=== PATIENT | male | born 1950 | race Caucasian/White ===

== ENCOUNTER → 2018-08-20 | Outpatient (CLI) | payer BC ==
--- NOTE | 2018-08-20 10:35 | REP ---
RIGHT KNEE, FIVE VIEWS: HISTORY: Pain. There is no acute fracture or dislocation. There is medial subluxation of the femur with respect to the tibia. There is severe narrowing of the knee joint space. There is minimal narrowing of the patellofemoral joint space. Osteophytes are present on the tibia, femur and patella. IMPRESSION: Degenerative change as described above. Electronically Signed by Garret Denson MD 08/20/2018 10:44 A
== END ==
LOC: M WUC 09:34
PROVIDERS: ATTEND Physician Assistant
DX: S83.111A Anterior subluxation of proximal end of tibia, right knee, initial encounter (principal); M25.861 Other specified joint disorders, right knee; M25.761 Osteophyte, right knee; Y93.9 Activity, unspecified; Y92.9 Unspecified place or not applicable; X58.XXXA Exposure to other specified factors, initial encounter; Y99.9 Unspecified external cause status